=== PATIENT | male | born 1950 | race Caucasian/White ===

== ENCOUNTER 2017-11-22 12:55 | Emergency (ER) | payer OTHER ==
--- NOTE | 2017-11-22 15:50 | EDM.PDOC ---
ED HPI GENERAL MEDICAL PROBLEM - General Chief Complaint: General Stated Complaint: FLU LIKE SYMPTOMS, FAST HEARTBEAT Time Seen by Provider: 11/22/17 13:08 Source of Information: Reports: Patient, Family History Limitations: Reports: No Limitations - History of Present Illness INITIAL COMMENTS - FREE TEXT/NARRATIVE: 67 y.o.w.f, [facility], H/O Lung CA, underwent chemo Tx and was told to ambulance dispatcher to the ed If anything come up "abnorma". Pt has seen blood in his stool twice, which made him to come to the ED. No N/V/D, no Dizziness, no lightheadedness. Pt says, he is in his usual state of health, No F/C. BP 144/119 Pulse 78 Temp 36.8 Pulse ox 99% on RA Onset Date: 11/22/17 Onset Time: 07:00 Duration: Day(s): Location: Reports: Abdomen Quality: Reports: Other (blood in stool) Severity: Mild Improves with: Reports: None Worsens with: Reports: None Context: Reports: Other (on Chemo Tx for Lung CA) Associated Symptoms: Reports: No Other Symptoms - Related Data Allergies Allergy/AdvReac Type Severity Reaction Status Date / Time No Known Allergies Allergy Verified 11/22/17 13:07 Home Meds: Home Meds Cyclobenzaprine [Flexeril] 10 mg PO DAILY 11/22/17 [History] Dexamethasone 1 mg PO DAILY 11/22/17 [History] Enoxaparin [Lovenox] 150 mg SQ BID 11/22/17 [History] Insulin Glargine,Hum.Rec.Anlog [Lantus Solostar] 50 unit SQ BEDTIME 11/22/17 [ History] Losartan [Cozaar] 12.5 mg PO DAILY 11/22/17 [History] Metoclopramide [Reglan] 5 mg PO ASDIRECTED 11/22/17 [History] Ondansetron HCl [Zofran] 4 mg PO Q6HR PRN 11/22/17 [History] Prochlorperazine [Compazine] 5 mg PO Q6H PRN 11/22/17 [History] amLODIPine Besylate [Amlodipine Besylate] 5 mg PO DAILY 11/22/17 [History] atorvaSTATin [Lipitor] 80 mg PO BEDTIME 11/22/17 [History] glipiZIDE [Glipizide ER] 10 mg PO BID 11/22/17 [History] metFORMIN [Glucophage] 1,000 mg PO BIDMEALS 11/22/17 [History] Past Medical History Cardiovascular History: Reports: Blood Clots/VTE/DVT, Heart Failure, Hypertension Endocrine/Metabolic History: Reports: Diabetes, Type II Oncologic (Cancer) History: Reports: Lung, Other (See Below) Other Oncologic History: small cell lung CA Social & Family History - Tobacco Use Smoking Status *Q: Former Smoker Used Tobacco, but Quit: Yes Month Tobacco Last Used: quit 5 years ago - Caffeine Use Caffeine Use: Reports: Coffee - Recreational Drug Use Recreational Drug Use: No ED ROS GENERAL - Review of Systems Review Of Systems: See Below Constitutional: Reports: No Symptoms HEENT: Reports: No Symptoms Respiratory: Reports: No Symptoms Cardiovascular: Reports: No Symptoms Endocrine: Reports: No Symptoms GI/Abdominal: Reports: No Symptoms, Other (blood in stool) : Reports: No Symptoms Musculoskeletal: Reports: No Symptoms Skin: Reports: No Symptoms Neurological: Reports: No Symptoms Psychiatric: Reports: No Symptoms Hematologic/Lymphatic: Reports: No Symptoms Immunologic: Reports: No Symptoms ED EXAM, GENERAL - Physical Exam Exam: See Below Exam Limited By: No Limitations General Appearance: Alert, WD/WN, No Apparent Distress, Obese Eye Exam: Bilateral Eye: Normal Inspection Ears: Normal External Exam Ear Exam: Bilateral Ear: Auricle Normal Nose: Normal Inspection, Normal Mucosa Throat/Mouth: Normal Inspection, Normal Lips Head: Atraumatic, Normocephalic Neck: Normal Inspection, Supple Respiratory/Chest: No Respiratory Distress, Lungs Clear, Normal Breath Sounds Cardiovascular: Normal Peripheral Pulses, Regular Rate, Rhythm, No Edema GI/Abdominal: Normal Bowel Sounds, Soft (Male) Exam: Deferred Rectal (Males) Exam: Deferred Back Exam: Normal Inspection, Full Range of Motion Extremities: Normal Inspection, Normal Range of Motion, Non-Tender, No Pedal Edema Neurological: Alert, Oriented, CN II-XII Intact, Normal Cognition, Normal Gait, No Motor/Sensory Deficits Psychiatric: Normal Affect, Normal Mood Skin Exam: Warm, Dry, Intact, Normal Color, No Rash Lymphatic: No Adenopathy Course - Vital Signs Text/Narrative:: 67 y.o.w.f, [facility], H/O Lung CA, underwent chemo Tx and was told to ambulance dispatcher to the ed If anything come up "abnorma". Pt has seen blood in his stool twice, which made him to come to the ED. No N/V/D, no Dizziness, no lightheadedness. Pt says, he is in his usual state of health, No F/C. BP 144/119 Pulse 78 Temp 36.8 Pulse ox 99% on RA PE: WNWD W M NAD Labs: WBK 19K, Lactic acid was nl, no left shift. Impression: Bilat small cell CA of lung. On chemo Tx. Leucocysosis, most likely Chemo Tx related Tx: None here in the ed Plan: D/C with instructions Last Recorded V/S: Last Vital Signs Temp 36.7 C 11/22/17 13:08 Pulse 89 11/22/17 15:55 Resp 18 11/22/17 13:08 BP 139/93 H 11/22/17 15:55 Pulse Ox 98 11/22/17 13:08 - Orders/Labs/Meds Labs: Laboratory Tests 11/22/17 11/22/17 11/22/17 Range/Units 13:50 13:50 13:50 WBC 19.5 H (4.5-12.0) X10-3/uL RBC 5.26 (4.30-5.75) x10(6)uL Hgb 14.8 (11.5-15.5) g/dL Hct 43.5 (30.0-51.3) % MCV 82.7 (80-96) fL MCH 28.2 (27.7-33.6) pg MCHC 34.1 (32.2-35.4) g/dL RDW 12.4 (11.5-15.5) % Plt Count 160 (125-369) X10(3)uL MPV 9.0 (7.4-10.4) fL Add Manual Diff Yes Neutrophils % (Manual) 87 H (46-82) % Lymphocytes % (Manual) 13 (13-37) % PT 9.9 (8.7-11.1) INR 0.98 (0.89-1.13) Sodium 140 (135-145) mmol/L Potassium 4.2 (3.5-5.3) mmol/L Chloride 104 (100-110) mmol/L Carbon Dioxide 27 (21-32) mmol/L BUN 37 H (7-18) mg/dL Creatinine 1.5 H (0.70-1.30) mg/dL Est Cr Clr Drug Dosing 55.56 mL/min Estimated GFR (MDRD) 47 L (>60) BUN/Creatinine Ratio 24.7 H (9-20) Glucose 109 (80-116) mg/dL Lactic Acid (0.4-2.2) mmol/L Calcium 9.0 (8.6-10.2) mg/dL Urine Color (YELLOW) Urine Appearance (CLEAR) Urine pH (5.0-6.5) Ur Specific [place] (1.010-1.025) Urine Protein (NEGATIVE) mg/dL Urine Glucose (UA) (NEGATIVE) mg/dL Urine Ketones (NEGATIVE) mg/dL Urine Occult Blood (NEGATIVE) Urine Nitrite (NEGATIVE) Urine Bilirubin (NEGATIVE) Urine Urobilinogen (NEGATIVE) mg/dL Ur Leukocyte Esterase (NEGATIVE) Urine WBC (0) Ur Squamous Epith Cells (NS,R,O) Urine Bacteria (NS) 11/22/17 11/22/17 Range/Units 14:15 15:15 WBC (4.5-12.0) X10-3/uL RBC (4.30-5.75) x10(6)uL Hgb (11.5-15.5) g/dL Hct (30.0-51.3) % MCV (80-96) fL MCH (27.7-33.6) pg MCHC (32.2-35.4) g/dL RDW (11.5-15.5) % Plt Count (125-369) X10(3)uL MPV (7.4-10.4) fL Add Manual Diff Neutrophils % (Manual) (46-82) % Lymphocytes % (Manual) (13-37) % PT (8.7-11.1) INR (0.89-1.13) Sodium (135-145) mmol/L Potassium (3.5-5.3) mmol/L Chloride (100-110) mmol/L Carbon Dioxide (21-32) mmol/L BUN (7-18) mg/dL Creatinine (0.70-1.30) mg/dL Est Cr Clr Drug Dosing mL/min Estimated GFR (MDRD) (>60) BUN/Creatinine Ratio (9-20) Glucose (80-116) mg/dL Lactic Acid 1.3 (0.4-2.2) mmol/L Calcium (8.6-10.2) mg/dL Urine Color Yellow (YELLOW) Urine Appearance Slightly cloudy (CLEAR) Urine pH 5.0 (5.0-6.5) Ur Specific [place] 1.020 (1.010-1.025) Urine Protein 30 H (NEGATIVE) mg/dL Urine Glucose (UA) 50 H (NEGATIVE) mg/dL Urine Ketones Negative (NEGATIVE) mg/dL Urine Occult Blood Negative (NEGATIVE) Urine Nitrite Negative (NEGATIVE) Urine Bilirubin Negative (NEGATIVE) Urine Urobilinogen Normal (NEGATIVE) mg/dL Ur Leukocyte Esterase Negative (NEGATIVE) Urine WBC 0-5 (0) Ur Squamous Epith Cells Few H (NS,R,O) Urine Bacteria Few H (NS) Departure - Departure Time of Disposition: 15:50 Disposition: Home, Self-Care 01 Condition: Good Clinical Impression: Hematochezia Lung cancer Qualifiers: Laterality: unspecified laterality Lung location: unspecified part of lung Qualified Code(s): C34.90 - Malignant neoplasm of unspecified part of unspecified bronchus or lung Chemotherapy adverse reaction Qualifiers: Encounter type: initial encounter Qualified Code(s): T45.1X5A - Adverse effect of antineoplastic and immunosuppressive drugs, initial encounter Leukocytosis (leucocytosis) Qualifiers: Leukocytosis type: unspecified Qualified Code(s): D72.829 - Elevated white blood cell count, unspecified - Discharge Information Referrals: PCP,Not In Area [Primary Care Provider] - Forms: ED Department Discharge Additional Instructions: [facility], please come back if your symptoms get worse.
== END 2017-11-22 15:56 | disposition home or self-care (01) ==
LOC: FB.ED 12:55
DX: K92.1 Melena (principal); T45.1X5A Adverse effect of antineoplastic and immunosuppressive drugs, initial encounter; D72.829 Elevated white blood cell count, unspecified; C34.90 Malignant neoplasm of unspecified part of unspecified bronchus or lung; E11.9 Type 2 diabetes mellitus without complications; I11.0 Hypertensive heart disease with heart failure; I50.9 Heart failure, unspecified; Z79.4 Long term (current) use of insulin; Z79.899 Other long term (current) drug therapy; Z87.891 Personal history of nicotine dependence
CPT/HCPCS: 36415; 80048; 81001; 83605; 85025; 85610; 99284